=== PATIENT | female | born 1970 | race Caucasian/White ===

== ENCOUNTER 2017-01-16 08:36 | Day surgery (SDC) | payer BC ==
[2017-01-16] VITALS (16 sets, daily range): BP systolic 94–140; BP diastolic 53–90; PULSE 65–86; RESP 16–25; Ht 162.6 cm; Wt 101.0 kg
[~2017-01-16] VITALS: Ht 162.6 cm; Wt 101.0 kg
[~2017-01-16 08:36] MED LIST: CYCL5TAB PO; GABA300C16 PO; OMEP20CA16 PO; SUMA100T9 PO; TRAM50TA2 PO
[2017-01-16] MEDS ORDERED: SIMV20TA2 PO (09:19)
[2017-01-16] MEDS ORDERED: METF500T4 PO (09:31)
[2017-01-16] MEDS ORDERED: BUPIVACAINE 0.25% (MPF) 30 ML INJ ONE (12:32)
[2017-01-16] MEDS ORDERED: FENTAnyl 50 MCG/ML VIAL ONE ×2 (12:41→13:33)
[2017-01-16] MEDS ORDERED: MIDAZOLAM 1 MG/ML 2 ML INJ ONE ×2 (12:41→13:39)
[2017-01-16] MEDS ORDERED: SOD CHLORIDE 0.9% 1,000 ML IV SCH (13:00)
[2017-01-16] MEDS ORDERED: CEFAZOLIN 2 GM/50 ML (PMX) 50 ML IVPB ONE (13:00)
[2017-01-16] MEDS ORDERED: POLYMYXIN/BACITRACIN 1L IRRIG ONE (13:01)
[2017-01-16] MEDS ORDERED: NEOSTIGMINE 3 MG/3 ML SYRINGE ONE (13:24)
[2017-01-16] MEDS ORDERED: GLYCOPYRROLATE 0.4 MG INJ ONE (13:24)
[2017-01-16] MEDS ORDERED: ONDANSETRON 4 MG INJ ONE (13:24)
[2017-01-16] MEDS ORDERED: ROCURONIUM 50 MG INJ ONE (13:24)
[2017-01-16] MEDS ORDERED: LIDOCAINE 2% (SDV) 5 ML INJ ONE (13:24)
[2017-01-16] MEDS ORDERED: CEFAZOLIN 1 GM INJ ONE (13:24)
[2017-01-16] MEDS ORDERED: morphine 10 MG INJ ONE (13:24)
[2017-01-16] MEDS ORDERED: PROPOFOL 20 ML ONE (13:24)
[2017-01-16] MEDS ORDERED: FENTAnyl 50 MCG/ML VIAL IV PRN (13:30)
[2017-01-16] MEDS ORDERED: HYDROmorphONE (0.2 MG/ML) 10ML SYG IV PRN ×2 (13:30)
[2017-01-16] MEDS ORDERED: DIPHENHYDRAMINE 50 MG INJ IV PRN (13:30)
[2017-01-16] MEDS ORDERED: LABETALOL HCL 20MG INJ IV PRN (13:30)
[2017-01-16] MEDS ORDERED: hydrALAzine 20 MG INJ IV PRN (13:30)
[2017-01-16] MEDS ORDERED: MEPERIDINE 25 MG INJ IV PRN (13:30)
[2017-01-16] MEDS ORDERED: ONDANSETRON 4 MG INJ IV PRN (13:30)
[2017-01-16] MEDS ORDERED: KETOROLAC 30 MG INJ ONE (13:39)
[2017-01-16] MEDS ORDERED: HYDROCODONE/APAP (5/325) TAB PO ONE (14:00)
--- NOTE | 2017-01-16 15:17 | OPR ---
DATE OF OPERATION: 01/16/2017 INDICATION: This is a 46-year-old female with an incarcerated ventral hernia. She underwent a abner od of attempted weight loss for optimization for surgery; however, she was not able to lose weight a fter continued monitoring and attempts. We elected to operate on her understanding the greater risk s of recurrence. Risks, alternatives, benefits, and personnel were discussed with the patient. Casie alcantara expressed understanding and consents to the operation. PREOPERATIVE DIAGNOSIS: Incarcerated ventral hernia. POSTOPERATIVE DIAGNOSIS: Incarcerated ventral hernia. OPERATION PERFORMED: 1. Laparoscopic incarcerated [place] [address]. 2. Implantation of Ventralight ST 10 x 15 cm mesh. CPT codes 39486. 3. Therapeutic injection of Marcaine CPT code 80535. SURGEON: Milo Kim MD. SPRAY II PAINTER: Ilya Nye MD. SPECIMENS: Incarcerated hernia contents. COMPLICATIONS: None. ANESTHESIA: General. PROCEDURE: The patient was taken to the OR and prepped and draped in usual sterile fashion. Surgic al timeout was performed. IV antibiotics were given. Left upper quadrant 5 mm transverse incision is made with a 15 blade. Using a 5 mm optical trocar, optical entry was performed. Pneumoperitoneu m was established. Left flank 12 mm optical trocar in left lower quadrant and 5 mm optical trocars were placed under direct visualization. Upon initial inspection, there is a ventral hernia defect w ith incarceration. This was excised using laparoscopic Harmonic and advanced laparoscopic technique s. The defect is identified. The fascial defect was closed primarily with interrupted #1 Prolene u sing Endoclose and laparoscopic techniques. Underlay mesh with Ventralight ST is affixed to the ant erior abdominal wall with SecureStrap. There is approximately 4 to 5 cm of coverage in all directio ns. There was good hemostasis. Ports are removed under direct visualization. Skin was closed usin g skin bridget. Local anesthesia with Marcaine into all incision sites are performed. Dry dressing s were applied afterwards. Dictated By: MILO KIM MD SB/NTS Conf#: [id number] DID#: [id number]
== END 2017-01-16 17:54 | disposition home or self-care (01) ==
LOC: SDS 08:36
PROVIDERS: ATTEND Surgery
DX: K43.6 Other and unspecified ventral hernia with obstruction, without gangrene (principal); I10 Essential (primary) hypertension; E66.01 Morbid (severe) obesity due to excess calories; Z68.38 Body mass index [BMI] 38.0-38.9, adult
CPT/HCPCS: 49653; 82962; 84703; 88302; C1781; J0690; J1170; J1885; J2250; J2270; J2405; J2710; J3010; Z7512; Z7610

== ENCOUNTER 2017-02-17 08:52 | Day surgery (SDC) | payer BC ==
[~2017-02-17] VITALS: Ht 160 cm; Wt 98.0 kg
[~2017-02-17 08:52] MED LIST changes: +METF500T4 PO; +SIMV20TA2 PO
[2017-02-17 09:48] VITALS: Ht 160 cm; Wt 98.0 kg
[2017-02-17] MEDS ORDERED: PROPOFOL 20 ML ONE (10:35)
[2017-02-17 10:41] VITALS: BP 123/61; PULSE 69; RESP 20
[2017-02-17 11:30] VITALS: BP 96/55; RESP 18
--- NOTE | 2017-02-18 13:26 | GILP ---
DATE OF PROCEDURE: 02/17/2017 NAME OF PROCEDURES: 1. Esophagogastroduodenoscopy and biopsy. 2. Colposcopy and biopsy. SURGEON: Mike Blanco MD PREOPERATIVE DIAGNOSES: 1. Abdominal pain. 2. Change in the bowel habit. 3. Rectal bleeding. POSTOPERATIVE DIAGNOSES: 1. Gastritis with erosions. 2. Gastric mucosal biopsies were taken for Helicobacter pylori test. 3. Colonoscopy all the way to the cecum. 4. Small transverse colon polyp was removed using the biopsy forceps. 5. Internal hemorrhoids. INDICATION FOR THE PROCEDURE: Ms. Ariane Bowens is a 46-year-old female patient who had upper ab dominal pain not responding to therapy. She also noticed a change in the bowel habit and rectal ble eding. The patient was scheduled for endoscopy and colonoscopy for further evaluation. The procedures and possible complications are well explained to the patient. She understood and con sented to the procedure. DESCRIPTION OF PROCEDURE: Under the influence of anesthesia, the gastroscope was carefully introduc ed into the esophagus and under direct vision, it was advanced to the stomach and through the pyloru s into the duodenal bulb and descending duodenum. FINDINGS: ESOPHAGUS: The mucosa was normal. STOMACH: The patient had gastritis with erosions. Gastric mucosal biopsies were taken for H. pylor i test. DUODENUM: Normal. The colonoscope was carefully introduced in the rectum and under direct vision, it was advanced all the way to the cecum. FINDINGS: The patient had a small transverse colon polyp and it was removed using the biopsy forcep s. She was noted to have internal hemorrhoids. She tolerated the procedures very well and there was no complication from the procedures. At the en d of the procedures, she was awake with stable vital signs and she was discharged home to the care o f her family. IMPRESSION: 1. Gastritis with erosions. 2. Gastric mucosal biopsies were taken for Helicobacter pylori test. 3. Colonoscopy all the way to the cecum. 4. Small transverse colon polyp was removed using the biopsy forceps. 5. Internal hemorrhoids. PLAN: 1. Bentyl 10 mg p.o. t.i.d. p.r.n. for pain. 2. Anusol-HC 2.5% cream at bedtime p.r.n. 3. Continue omeprazole. 4. Await histopathology reports. 5. Next colonoscopy in 5 years. Dictated By: MIKE FORREST/MARGE Conf#: [id number] DID#: [id number] CC: MIKE BLANCO MD;*EndCC*
== END 2017-02-17 18:00 | disposition home or self-care (01) ==
LOC: GIL 08:52
PROVIDERS: ATTEND Internal Medicine Gastroenterology
DX: Z12.11 Encounter for screening for malignant neoplasm of colon (principal); D12.3 Benign neoplasm of transverse colon; K64.8 Other hemorrhoids; K29.60 Other gastritis without bleeding; E78.5 Hyperlipidemia, unspecified; E11.9 Type 2 diabetes mellitus without complications
CPT/HCPCS: 43239; 45380; 82962; 87081; 88305; Z7610